=== PATIENT | female | born 1990 | race Two or more races ===

== ENCOUNTER 2023-02-01 22:37 | Inpatient (IN) | payer OTHER ==
[~2023-02-01] VITALS: Ht 160 cm; Wt 81.4 kg
[2023-02-01 22:48] VITALS: PULSE 94; RESP 18; O2SAT 95
[2023-02-02] VITALS (7 sets, daily range): BP systolic 13–113; BP diastolic 66–76; PULSE 76–94; RESP 11–20; TEMP 98.1–98.9; O2SAT 94–97
[2023-02-02 01:33] LABS: Basophils # (auto) 0.1 10 ^3/uL (0-0.2); Basophils % (auto) 0.4 % (0.0-2.0); Eosinophils # (auto) 0.2 10 ^3/uL (0-0.8); Eosinophils % (auto) 1.2 % (0.0-7.0); Hematocrit 40.6 % (36.0-46.0); Hemoglobin 13.4 g/dL (12.2-16.2); Lymphocytes # (auto) 3.2 10 ^3/uL (0.4-5.4); Lymphocytes % (auto) 18.4 % (10.0-50.0); Mean Corpuscular Hemoglobin 30.8 pg (28.0-32.0); Mean Corpuscular Hgb Conc. 32.9 g/dL (32.0-36.0); Mean Corpuscular Volume 93.5 fL (80.0-100.0); Monocytes # (auto) 0.9 10 ^3/uL (0-1.3); Monocytes % (auto) 5.2 % (0.0-12.0); Neutrophils # (auto) 13.1 10 ^3/uL (1.6-8.6); Neutrophils % (auto) 74.8 % (37.0-80.0); Red Blood Cells 4.35 10^6/uL (4.0-5.20); Red Cell Distribution Width 13.7 % (11.8-14.3); White Blood Cell 17.5 10^3/uL (4.4-10.8)
[2023-02-02 01:50] LABS: Alanine Aminotransferase 17 U/L (7-40); Albumin 4.1 g/dL (3.2-4.8); Alkaline Phosphatase 83 U/L (46-116); Anion Gap 8 (5-15); Aspartate Aminotransferase 10 U/L (13-40); BUN/Creatinine Ratio 7.1 (10.0-20.0); Blood Urea Nitrogen 5 mg/dL (9-23); Calcium 8.1 mg/dL (8.7-10.4); Carbon Dioxide 23 mmol/L (20-30); Chloride 109 mmol/L (98-107); Glucose 99 mg/dL (74-106); Lipase 33 U/L (12-53); Potassium 3.8 mmol/L (3.5-5.1); Sodium 140 mmol/L (136-145)
[2023-02-02 01:51] LABS: Total Protein 6.6 g/dL (5.7-8.2)
[2023-02-02 01:59] LABS: INR 1.07 (0.9-1.15); Partial Thromboplastin Time 29.2 SEC (24.5-34.5); Prothrombin Time 11.2 sec (9.3-11.8)
[2023-02-02 02:09] LABS: Urine Bacteria NONE SEEN /hpf (None Seen); Urine Blood Negative /uL (Negative); Urine Clarity Clear (Clear); Urine Color Colorless (Yellow); Urine Protein, UAD Negative (Negative); Urine Specific Gravity 1.037 (1.001-1.035); Urine Urobilinogen Normal (Negative); Urine WBC 3 /hpf (0 - 5)
[2023-02-02] MEDS ORDERED: ALBUTEROL SULF 2.5 MG/0.5ML(0.5%) NEB SOLN NEB PRN (03:15)
[2023-02-02] MEDS ORDERED: MORPHINE SULFATE INJ 2 MG/ml SYRG IV PRN ×2 (03:15)
[2023-02-02] MEDS ORDERED: HYDROcodone-ACET 5/325MG TAB PO PRN (03:15)
[2023-02-02] MEDS ORDERED: ONDANSETRON HCL 4 MG/2 ML VIAL IV PRN ×2 (03:15→10:45)
[2023-02-02] MEDS ORDERED: NITROGLYCERIN 0.4 MG SL TAB SL PRN (03:15)
[2023-02-02 04:57] LABS: Basophils # (auto) 0.1 10 ^3/uL (0-0.2); Basophils % (auto) 0.6 % (0.0-2.0); Eosinophils # (auto) 0.2 10 ^3/uL (0-0.8); Eosinophils % (auto) 1.1 % (0.0-7.0); Hematocrit 40.8 % (36.0-46.0); Hemoglobin 13.3 g/dL (12.2-16.2); Lymphocytes # (auto) 2.1 10 ^3/uL (0.4-5.4); Lymphocytes % (auto) 14.2 % (10.0-50.0); Mean Corpuscular Hemoglobin 30.4 pg (28.0-32.0); Mean Corpuscular Hgb Conc. 32.7 g/dL (32.0-36.0); Monocytes # (auto) 0.9 10 ^3/uL (0-1.3); Monocytes % (auto) 6.2 % (0.0-12.0); Neutrophils # (auto) 11.6 10 ^3/uL (1.6-8.6); Neutrophils % (auto) 77.9 % (37.0-80.0); Red Blood Cells 4.38 10^6/uL (4.0-5.20); Red Cell Distribution Width 13.4 % (11.8-14.3); White Blood Cell 14.9 10^3/uL (4.4-10.8)
[2023-02-02 05:04] LABS: Alanine Aminotransferase 16 U/L (7-40); Alkaline Phosphatase 80 U/L (46-116); Anion Gap 10 (5-15); Aspartate Aminotransferase 10 U/L (13-40); BUN/Creatinine Ratio 7.7 (10.0-20.0); Blood Urea Nitrogen 5 mg/dL (9-23); Calcium 8.2 mg/dL (8.7-10.4); Carbon Dioxide 22 mmol/L (20-30); Chloride 108 mmol/L (98-107); Glucose 103 mg/dL (74-106); Potassium 3.7 mmol/L (3.5-5.1); Sodium 140 mmol/L (136-145); Total Protein 6.5 g/dL (5.7-8.2)
[2023-02-02] MEDS: metroNIDAZOLE 500MG/100ML 100 ML IV SCH ×3 (06:15→20:26)
[2023-02-02] MEDS: D5W/SOD CHL 0.45% 1,000 ML IV SCH ×2 (06:16→16:35)
[2023-02-02] MEDS ORDERED: ceFAZolin 2 GM/D5W100ml 100 ML IV ONE (10:25)
[2023-02-02] MEDS ORDERED: fentaNYL CITRATE 100 MCG/2 ML VL ONE ×2 (10:40→11:29)
[2023-02-02] MEDS ORDERED: HYDROmorphone HCL 2 MG/ML VL/or syr ONE (10:40)
[2023-02-02] MEDS ORDERED: MIDAZOLAM HCL 2MG/2ML 2ml VIAL (1mg/ml) ONE (10:40)
[2023-02-02] MEDS ORDERED: ePHEDrine SULFATE 50 MG/ML AMP ONE (10:41)
[2023-02-02] MEDS ORDERED: LIDOCAINE 2% (LOCAL ANESTH.) PF 5ml SDV ONE (10:41)
[2023-02-02] MEDS ORDERED: PROPOFOL 10 MG/ML 20 ML IV ONE (10:41)
[2023-02-02] MEDS ORDERED: DexAMETHasone SOD PHOS 10MG/1ML VIAL INJ ONE (10:41)
[2023-02-02] MEDS ORDERED: GLYCOPYRROLATE 0.2 MG/ML 1ML VIAL ONE (10:41)
[2023-02-02] MEDS ORDERED: ONDANSETRON HCL 4 MG/2 ML VIAL ONE (10:41)
[2023-02-02] MEDS ORDERED: KETOROLAC TROMETH 30 MG/ML 1ML VIAL ONE (10:41)
[2023-02-02] MEDS ORDERED: ROCURONIUM 10MG/ML 10ML VIAL IV ONE (10:41)
[2023-02-02] MEDS ORDERED: HYDROmorphone HCL 2 MG/ML VL/or syr IV PRN (10:45)
[2023-02-02] MEDS ORDERED: PIPERACILLIN-TAZOB 3.375GM 100 ML IV ONE (10:45)
[2023-02-02] MEDS ORDERED: cefTRIAXone 1GM/50ML D5W 50 ML IV ONE (11:15)
[2023-02-02] MEDS: SODIUM CHLORIDE 0.9% 1,000 ML IV SCH (15:00)
[2023-02-02] MEDS ORDERED: KETAMINE 50mg/ML 10ml Vial (500mg/10ml) IV ONE (18:30)
[2023-02-02] MEDS ORDERED: ALBU2TAB11 INH (19:32)
[2023-02-02] MEDS ORDERED: IPRIH INH (19:32)
[2023-02-02] MEDS: ACETAMINOPHEN 325 MG TAB PO PRN (20:26)
[2023-02-03 05:07] VITALS: BP 109/70; PULSE 84; RESP 18; TEMP 97.2; O2SAT 96
[2023-02-03] MEDS: metroNIDAZOLE 500MG/100ML 100 ML IV SCH ×2 (05:27→14:00)
[2023-02-03] MEDS: SODIUM CHLORIDE 0.9% 1,000 ML IV SCH ×2 (05:31→15:10)
[2023-02-03] MEDS: D5W/SOD CHL 0.45% 1,000 ML IV SCH (05:55)
[2023-02-03 06:53] LABS: Basophils # (auto) 0 10 ^3/uL (0-0.2); Basophils % (auto) 0.3 % (0.0-2.0); Eosinophils # (auto) 0.1 10 ^3/uL (0-0.8); Eosinophils % (auto) 0.5 % (0.0-7.0); Hematocrit 35.5 % (36.0-46.0); Hemoglobin 11.8 g/dL (12.2-16.2); Lymphocytes # (auto) 2.1 10 ^3/uL (0.4-5.4); Lymphocytes % (auto) 18.7 % (10.0-50.0); Mean Corpuscular Hgb Conc. 33.2 g/dL (32.0-36.0); Mean Corpuscular Volume 93.4 fL (80.0-100.0); Monocytes # (auto) 0.7 10 ^3/uL (0-1.3); Monocytes % (auto) 6.2 % (0.0-12.0); Neutrophils # (auto) 8.3 10 ^3/uL (1.6-8.6); Neutrophils % (auto) 74.3 % (37.0-80.0); Red Cell Distribution Width 13.4 % (11.8-14.3); White Blood Cell 11.1 10^3/uL (4.4-10.8)
[2023-02-03 07:13] LABS: Alanine Aminotransferase 20 U/L (7-40); Alkaline Phosphatase 68 U/L (46-116); Anion Gap 7 (5-15); BUN/Creatinine Ratio 10.3 (10.0-20.0); Blood Urea Nitrogen 6 mg/dL (9-23); Calcium 8.4 mg/dL (8.7-10.4); Carbon Dioxide 24 mmol/L (20-30); Chloride 109 mmol/L (98-107); Glucose 101 mg/dL (74-106); Potassium 3.8 mmol/L (3.5-5.1); Sodium 140 mmol/L (136-145)
[2023-02-03 07:15] LABS: Albumin 3.7 g/dL (3.2-4.8); Aspartate Aminotransferase 11 U/L (13-40); Bilirubin, Total 0.6 mg/dL (0.2-1.0)
[2023-02-03 08:00] VITALS: PULSE 78; RESP 18; O2SAT 96
[2023-02-03 09:00] VITALS: BP 116/70; PULSE 70; RESP 17; TEMP 97.5; O2SAT 96
[2023-02-03] MEDS ORDERED: cefTRIAXone 1GM/50ML D5W 50 ML IV SCH (09:00)
[2023-02-03] MEDS ORDERED: ACE3T PO (09:17)
[2023-02-03] MEDS ORDERED: AMOX500T86 PO (09:17)
[2023-02-03 10:40] VITALS: O2SAT 98
[2023-02-03] MEDS: ACETAMINOPHEN 325 MG TAB PO PRN (12:23)
[2023-02-03 13:00] VITALS: BP 107/74; PULSE 74; RESP 17; TEMP 98; O2SAT 97
[2023-02-03 17:00] VITALS: BP 114/73; PULSE 65; RESP 17; O2SAT 98
[2023-02-05 09:37] LABS: Hepatitis B Surface Antigen Negative (Negative)
[2023-02-05 09:58] LABS: Hepatitis C Antibody Negative (Negative)
== END 2023-02-03 18:31 | disposition home or self-care (01) | DRG 854 ==
LOC: ER 22:37 → TELE 02-02 03:19 → WEST WING 02-02 15:00
PROVIDERS: ADMIT Nurse Practitioner Family; ATTEND Internal Medicine
PROC: 0DTJ4ZZ Resection of Appendix, Percutaneous Endoscopic Approach (ICD-10-PCS; principal; 2023-02-02 11:01)
DX: A41.9 Sepsis, unspecified organism (principal); K35.80 Unspecified acute appendicitis; J45.909 Unspecified asthma, uncomplicated; E66.9 Obesity, unspecified; Z68.31 Body mass index [BMI] 31.0-31.9, adult
CPT/HCPCS: 36415; 74176; 80053; 81001; 81025; 83605; 83690; 85025; 85610; 85730; 86803; 87340; 93005; G0378; J1100; J1885; J2001; J2250; J2405; J2543; J2704; J3490